=== PATIENT | male | born 1955 | race Caucasian/White ===

== ENCOUNTER 2019-11-15 06:03 | Day surgery (SDC) | payer MEDICARE, OTHER ==
[~2019-11-15] VITALS: Ht 190.5 cm; Wt 120.5 kg
[2019-11-15] MEDS ORDERED: SODIUM CHLORIDE 0.9% 1,000 ML ONE (06:33)
[2019-11-15] MEDS ORDERED: SODIUM CHLORIDE 0.9% 1,000 ML IV ONE (07:00)
[2019-11-15 07:07] LABS: GLUCOMETER DEV NAME(LOC) SDS.; GLUCOSE,POINT OF CARE 148 MG/DL (70-110)
[2019-11-15] MEDS ORDERED: CHL25 PO (07:28)
[2019-11-15] MEDS ORDERED: HYDR-2924 PO (07:28)
[2019-11-15] MEDS ORDERED: BUDE10.2 IH (07:28)
[2019-11-15] MEDS ORDERED: ASPI-728 PO (07:28)
[2019-11-15] MEDS ORDERED: GABA-1181 PO (07:28)
[2019-11-15] MEDS ORDERED: CARV25 PO (07:28)
[2019-11-15] MEDS ORDERED: MECO10005 PO (07:28)
[2019-11-15] MEDS ORDERED: FINA-27 PO (07:28)
[2019-11-15] MEDS ORDERED: SODI650T PO (07:28)
[2019-11-15] MEDS ORDERED: PRAM0.258 PO (07:28)
[2019-11-15] MEDS ORDERED: CALC0.25 PO (07:28)
[2019-11-15] MEDS ORDERED: OMEP20 PO (07:28)
[2019-11-15] MEDS ORDERED: AMLO-258 PO (07:28)
[2019-11-15] MEDS ORDERED: FLUT15.812 NASAL (07:28)
[2019-11-15] MEDS ORDERED: TRAZ-252 PO (07:28)
[2019-11-15] MEDS ORDERED: CLON0.2T PO (07:28)
[2019-11-15] MEDS ORDERED: INSU100V12 SQ (07:28)
[2019-11-15] MEDS ORDERED: OMEG-50 PO (07:28)
[2019-11-15] MEDS ORDERED: ALBU8HFA PUFF (07:28)
[2019-11-15] MEDS ORDERED: IPRA4AER IH (07:28)
[2019-11-15] MEDS ORDERED: FLUO-191 PO (07:28)
[2019-11-15] MEDS ORDERED: LEVE500T8 PO (07:28)
[2019-11-15] MEDS ORDERED: SPIR25 PO (07:28)
[2019-11-15] MEDS ORDERED: IRBE150T51 PO (07:28)
[2019-11-15] MEDS ORDERED: MONT-35 PO (07:28)
[2019-11-15] MEDS ORDERED: FERR-82 PO (07:28)
[2019-11-15] MEDS ORDERED: OXYC-601 PO (07:28)
[2019-11-15] MEDS ORDERED: MIDAZOLAM HCL 2 MG/2 ML VIAL ONE (07:41)
[2019-11-15] MEDS ORDERED: FentaNYL CITRATE-PF 100 MCG/2 ML VIAL ONE (07:41)
[2019-11-15] MEDS ORDERED: MethylPREDNISolone SOD SUCC 125 MG/2 ML VIAL ONE (08:59)
[2019-11-15] MEDS ORDERED: MethylPREDNISolone SOD SUCC 125 MG/2 ML VIAL IVP ONE (09:00)
[2019-11-15] MEDS ORDERED: LIDOCAINE 4% 50 ML SOLUTION ONE (17:19)
[2019-11-15] MEDS ORDERED: BENZOCAINE 20% 50 MCG/SPRAY 57 GM ONE (17:19)
[2019-11-15] MEDS ORDERED: ALBUTEROL SULFATE 2.5 MG/0.5 ML NEB SOLUTION NEB ONE (17:19)
[2019-11-15] MEDS ORDERED: LIDOCAINE 2% 30 ML JELLY ONE (17:19)
[2019-11-15] MEDS ORDERED: HEPARIN SODIUM,PORCINE 1,000 UNITS/ML VIAL ONE (17:20)
[2019-11-15] MEDS ORDERED: OXYGEN THERAPY IH SCH (20:00)
== END 2019-11-15 10:20 | disposition home or self-care (01) ==
LOC: SURGERY 06:03
PROVIDERS: ATTEND Internal Medicine Critical Care Medicine
DX: J38.4 Edema of larynx (principal); B37.0 Candidal stomatitis; Z79.899 Other long term (current) drug therapy; Z98.890 Other specified postprocedural states
CPT/HCPCS: 31623; 31624; 71045; 82962; 87015; 87070; 87077; 87101; 87205; 87206; 87220; 88108; 88312; J1644; J2250; J2930; J3010; J7030; J7613; Z7610